=== PATIENT | male | born 1940 | race Two or more races ===

== ENCOUNTER 2017-12-14 12:47 | Emergency (ER) | payer SELFPAY ==
[2017-12-14 12:51] VITALS: BP 151/57; PULSE 80; RESP 16; TEMP 98.1; O2SAT 100
[2017-12-14] MEDS ORDERED: Tdap Vaccine 0.5 ml Vial (10-64 yrs) IM ONE ×2 (13:00→13:11)
--- NOTE | 2017-12-14 13:02 | ED PDOC ---
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 Patient states that he hit his face but did not lose consciousness, and he denies any dizziness before the fall. Patient complains of pain on the right side of his face where he sustained most of the impact of the fall. He has no other medical complaints. He does not remember date of last Tetanus. PMD: None Past Medical History Reviewed: Historical Data, Nursing Documentation, Vital Signs Vital Signs: Last Vital Signs Temp 98.1 F 12/14/17 12:49 Pulse 80 12/14/17 12:49 Resp 16 12/14/17 12:49 BP 151/57 H 12/14/17 12:49 Pulse Ox 100 12/14/17 14:17 - Medical History PMH: No Chronic Diseases - Family History Family History: States: Unknown Family Hx - Immunization History Hx Tetanus Toxoid Vaccination: No (Unknown) - Allergies Allergies/Adverse Reactions: Allergies Allergy/AdvReac Type Severity Reaction Status Date / Time No Known Allergies Allergy Verified 12/14/17 12:49 Review of Systems ROS Statement: Except As Marked, All Systems Reviewed And Found Negative Musculoskeletal: Positive for: Other (Facial Pain, Right side) Physical Exam - Reviewed Nursing Documentation Reviewed: Yes Vital Signs Reviewed: Yes - Physical Exam Appears: Positive for: Well, Non-toxic, No Acute Distress Head Exam: Positive for: NORMAL INSPECTION, NORMOCEPHALIC. Negative for: ATRAUMATIC (abrasions on right maxillary region and chin) Skin: Positive for: Normal Color, Warm, Dry Extremity: Positive for: Normal ROM. Negative for: Pedal Edema, Deformity Neurologic/Psych: Positive for: Alert, Oriented, Gait (steady). Negative for: Motor/Sensory Deficits - ECG O2 Sat by Pulse Oximetry: 100 (RA) Pulse Ox Interpretation: Normal - Other Rad CT head and facial bones X-Ray: Read By Radiologist X-Ray Interpretation: no acute finding Medical Decision Making Medical Decision Making: Time: 13:00 Initial Impression: 77 y/o male with head injury status post fall Initial Plan: --CT Head w/o Contrast --CT Maxillofacial w/o Contrast --XR Left Hand 3 Views --XR Right Hand 3 Views --Adacel --Tylenol Patient with CT findings, all questions answered. Advised Tylenol for pain. Patient was referred to clinic for follow up. Scribe Attestation: Documented by Kris Pereira, acting as a scribe for Mary Andrea PA-C. Provider Scribe Attestation: All medical record entries made by the Scribe were at my direction and personally dictated by me. I have reviewed the chart and agree that the record accurately reflects my personal performance of the history, physical exam, medical decision making, and the department course for this patient. I have also personally directed, reviewed, and agree with the discharge instructions and disposition. Disposition - Clinical Impression Clinical Impression: Facial abrasion, Head injury, Requires a booster tetanus, Facial contusion - Patient ED Disposition Is Patient to be Admitted: No Counseled Patient/Family Regarding: Studies Performed, Diagnosis, Need For Followup - Disposition Referrals: [facility] [Outside] Disposition: Routine/Home Disposition Time: 15:04 Condition: STABLE Additional Instructions: Tylenol for pain as needed. Follow up with clinic in 2-3 days. Instructions: Closed Head Injury (DC), Contusion (DC), Skin Abrasions (DC), Diphtheria and Tetanus Toxoids, and Acellular Pertussis Vaccine Forms: [employer] (New Zealander) Print Language: ROMANIAN
--- NOTE | 2017-12-14 14:07 | CT ---
PROCEDURE: CT HEAD WITHOUT CONTRAST. HISTORY: trauma COMPARISON: None available. TECHNIQUE: Axial computed tomography images were obtained through the head/brain without intravenous contrast. Radiation dose: Total exam DLP = mGy-cm. This CT exam was performed using one or more of the following dose reduction techniques: Automated exposure control, adjustment of the mA and/or kV according to patient size, and/or use of iterative reconstruction technique. FINDINGS: HEMORRHAGE: No intracranial hemorrhage. BRAIN: No mass effect or edema. No atrophy or chronic microvascular ischemic changes. VENTRICLES: Unremarkable. No hydrocephalus. CALVARIUM: Unremarkable. PARANASAL SINUSES: Unremarkable as visualized. No significant inflammatory changes. MASTOID AIR CELLS: Unremarkable as visualized. No inflammatory changes. OTHER FINDINGS: None. IMPRESSION: Normal CT of the Head.
--- NOTE | 2017-12-14 14:56 | CT ---
PROCEDURE: CT MAXILLOFACIAL BONES WITHOUT CONTRAST HISTORY: trauma COMPARISON: None TECHNIQUE: Contiguous axial CT images of the maxillofacial bones were obtained. Coronal and sagittal reformats were generated. Radiation dose: Total exam DLP = mGy-cm. This CT exam was performed using one or more of the following dose reduction techniques: Automated exposure control, adjustment of the mA and/or kV according to patient size, and/or use of iterative reconstruction technique. FINDINGS: NASAL BONES: Unremarkable. ORBITS: Unremarkable. PARANASAL SINUSES/ MASTOIDS: Clear. MAXILLA: Unremarkable. MANDIBLE/ TEMPOROMANDIBULAR JOINTS: Unremarkable. SKULL BASE: Unremarkable. TEMPORAL BONES: Middle ears and mastoid grossly unremarkable. OTHER FINDINGS: None. IMPRESSION: Unremarkable non contrast enhanced CT of the maxillofacial bones.
--- NOTE | 2017-12-14 16:43 | RAD ---
PROCEDURE: Left Hand Radiographs. HISTORY: trauma COMPARISON: None. FINDINGS: BONES: Normal. No fracture. JOINTS: Normal. No osteoarthritic changes. SOFT TISSUES: Normal. OTHER FINDINGS: None. IMPRESSION: Normal left hand radiographs.
--- NOTE | 2017-12-15 12:06 | RAD ---
HISTORY: trauma COMPARISON: No prior FINDINGS: BONES: Normal. No fracture. JOINTS: Normal. No osteoarthritis. SOFT TISSUE: Normal. OTHER FINDINGS: None . IMPRESSION: Normal Bone Xray.
== END 2017-12-14 15:41 | disposition home or self-care (01) ==
LOC: H.ER 12:47
DX: S00.81XA Abrasion of other part of head, initial encounter (principal); S00.83XA Contusion of other part of head, initial encounter; S69.91XA Unspecified injury of right wrist, hand and finger(s), initial encounter; W01.0XXA Fall on same level from slipping, tripping and stumbling without subsequent striking against object, initial encounter; Y92.480 Sidewalk as the place of occurrence of the external cause

== ENCOUNTER 2018-12-28 10:32 | Observation (INO) | payer MEDICAID, OTHER ==
--- NOTE | 2018-12-28 10:55 | ED PDOC ---
HPI: General Adult Time Seen by Provider: 12/28/18 10:42 Chief Complaint (Nursing): Chest Pain Chief Complaint (Provider): Body Pain History Per: Coloring Checker ([id number]) History/Exam Limitations: language barrier (poor historian) Onset/Duration Of Symptoms: Other (several months) Current Symptoms Are (Timing): Still Present Additional Complaint(s): Patient is a 78 y/o male with no significant PMHx who presents to the ED for evaluation of various physical complaints including body pain, dizziness, chest pain, and difficulty breathing for several months. Patient claims his symptoms worsen when sleeping at night. Patient reports this is the first time he is being seen by a physician for his symptoms. Patient also notes mild cough, headache, muscle ache, joint pain, and pain around his belly button. Patient denies vomiting, diarrhea, blood in stool, trouble urinating, unexplained weight loss, and prior heart or lung problems. 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 PCP: None Provided Past Medical History Reviewed: Historical Data, Nursing Documentation, Vital Signs Vital Signs: Last Vital Signs Temp 98.5 F 12/28/18 10:51 Pulse 74 12/28/18 10:51 Resp 20 12/28/18 10:51 BP 139/52 L 12/28/18 10:51 Pulse Ox 97 12/28/18 10:51 - Medical History PMH: No Chronic Diseases - Surgical History Surgical History: No Surg Hx - Family History Family History: States: No Known Family Hx - Social History Current smoker - smoking cessation education provided: No Ex-Smoker (has not smoked in the last 12 months): No Alcohol: None Drugs: Denies - Immunization History Hx Tetanus Toxoid Vaccination: No (Unknown) - Home Medications Home Medications: Ambulatory Orders Medication Instructions Recorded Aspirin [Aspirin Chewable] 81 mg PO DAILY chew 12/29/18 Aspirin [Muse Aspirin EC] 81 mg PO DAILY #30 tab 12/29/18 Lisinopril [Zestril] 2.5 mg PO DAILY #30 tab 12/29/18 Pantoprazole [Protonix EC Tab] 40 mg PO DAILY ect 12/29/18 - Allergies Allergies/Adverse Reactions: Allergies Allergy/AdvReac Type Severity Reaction Status Date / Time No Known Allergies Allergy Verified 12/14/17 12:49 Review of Systems ROS Statement: Except As Marked, All Systems Reviewed And Found Negative Constitutional: Negative for: Other (unexplained weight loss) Cardiovascular: Positive for: Chest Pain Respiratory: Positive for: Cough (mild), Other (dyspnea) Gastrointestinal: Positive for: Abdominal Pain (around belly button). Negative for: Vomiting, Diarrhea, Melena Genitourinary Male: Negative for: Dysuria, Incontinence, Hematuria Musculoskeletal: Positive for: Other (muscle ache and joint pain) Neurological: Positive for: Headache, Dizziness Physical Exam - Reviewed Nursing Documentation Reviewed: Yes - Physical Exam Appears: Positive for: No Acute Distress (elderly; poor historian) Head Exam: Positive for: ATRAUMATIC, NORMAL INSPECTION, NORMOCEPHALIC Skin: Positive for: Normal Color, Warm, DRY Eye Exam: Positive for: EOMI, Normal appearance, PERRL Neck: Positive for: Normal, Painless ROM, Supple Cardiovascular/Chest: Positive for: Regular Rate, Rhythm. Negative for: Murmur Respiratory: Positive for: Normal Breath Sounds. Negative for: Respiratory Distress Gastrointestinal/Abdominal: Positive for: Normal Exam, Soft, Other (umbilicus unremarkable). Negative for: Tenderness (focal), Mass (palpable) Back: Positive for: Normal Inspection. Negative for: L CVA Tenderness, R CVA Tenderness, Vertebral Tenderness Extremity: Positive for: Normal ROM. Negative for: Pedal Edema, Deformity Neurological/Psych: Positive for: Alert, Symmetric/Intact Strength (5/5), Oriented (to self and hospital), Gait (steady) - Laboratory Results Result Diagrams: 12/29/18 04:20 12/29/18 03:25 - ECG ECG Rhythm: Positive for: Sinus Rhythm, Right Bundle Branch Block (incomplete), Nonspecific Changes Rate: 69 O2 Sat by Pulse Oximetry: 97 (RA) Pulse Ox Interpretation: Normal Medical Decision Making Medical Decision Making: Time: 1055 Plan: Given total body pain will consider malignancy vs rhabdomyolysis vs thyroid disease vs arthritis vs CAD vs other. 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 PLEURA: No significant pleural effusion identified. No pneumothorax apparent. CARDIOVASCULAR: No aortic atherosclerotic calcification present. Heart is mildly enlarged.. No pulmonary vascular congestion. OSSEOUS STRUCTURES: Minor multilevel degenerative spondylosis of the thoracic spine VISUALIZED UPPER ABDOMEN: Normal. OTHER FINDINGS: None. IMPRESSION: The interstitial markings are increased and coarsened with a somewhat micronodular appearance; rule out sequela of reactive/inflammatory airway di sease or viral illness versus interstitial pneumonia. Scribe Attestation: Documented by Amando Archuleta, acting as a scribe Gregg Encarnacion III, DO. Provider Scribe Attestation: All medical record entries made by the Scribe were at my direction and personally dictated by me. I have reviewed the chart and agree that the record accurately reflects my personal performance of the history, physical exam, medical decision making, and the department course for this patient. I have also personally directed, reviewed, and agree with the discharge instructions and disposition. Disposition - Clinical Impression Clinical Impression: Acute chest pain, Dyspnea - Patient ED Disposition Is Patient to be Admitted: Yes - Disposition Disposition Time: 13:01 Condition: GOOD - Pt Status Changed To: Hospital Disposition Of: Observation
[2018-12-28 11:23] LABS: BASO # 0.1 K/uL (0.0-0.2); BASO % 1.1 % (0.0-2.0); EOS # 0.1 K/uL (0.0-0.7); EOS % 2.4 % (0.0-4.0); HEMOGLOBIN 12.8 g/dL (12.0-18.0); LYMPH # 1.3 K/uL (1.0-4.3); LYMPH % 26.7 % (20.0-40.0); MEAN CELL VOLUME 89.3 fl (80.0-94.0); MEAN CORPUSCULAR HGB CONC 33.6 g/dL (33.0-37.0); MEAN PLATELET VOLUME 8.2 fl (7.2-11.7); MONO # 0.4 K/uL (0.0-0.8); MONO % 7.7 % (0.0-10.0); NEUT % 62.1 % (50.0-75.0); NRBC % 0.1 % (0.0-0.0); RBC 4.28 Mil/uL (4.40-5.90); RED CELL DISTRIBUTION WIDTH 13.6 % (11.5-14.5); WHITE BLOOD COUNT 4.9 K/uL (4.8-10.8)
[2018-12-28 11:54] LABS: ALB/GLOB RATIO 1.3 (1.0-2.1); ALBUMIN 3.6 g/dL (3.5-5.0); ALT/SGPT 32 U/L (21-72); AST/SGOT 39 U/L (17-59); BLOOD UREA NITROGEN 23 mg/dl (9-20); CALCIUM 8.6 mg/dL (8.4-10.2); GFR NON-AFRICAN AMERICAN > 60; LIPASE 64 U/L (23-300)
[2018-12-28 12:05] LABS: B-TYPE NATRIURETIC PEPTIDE 3130 pg/ml (0-900)
[2018-12-28 12:13] LABS: SQUAMOUS EPITHIAL < 1 /hpf (0-5); URINE BILIRUBIN NEGATIVE (NEGATIVE); URINE BLOOD MODERATE (NEGATIVE); URINE CLARITY CLEAR (Clear); URINE COLOR YELLOW (YELLOW); URINE GLUCOSE (UA) NEG (NEGATIVE); URINE LEUKOCYTE ESTERASE NEG Leu/uL (Negative); URINE PROTEIN NEGATIVE (NEGATIVE); URINE UROBILINOGEN 0.2-1.0 mg/dL (0.2-1.0)
--- NOTE | 2018-12-28 14:05 | CP.PCM.HP ---
<Slime Parikh - Last Filed: 12/28/18 14:35> History of Present Illness - History of Present Illness History of Present Illness: 78 y/o male with no significant medical history presented to ED with complaint of body pain, dizziness, chest pain, and difficulty breathing for several month duration. He states his chest pain is intermittent, 5/10, located at center of chest and radiates to the abdomen and is associated with dyspnea. He states that lifting heavy boxes at work exacerbate symptoms and states that sometimes he awakens from his sleep because he cant catch his breath. He uses one pillow at night and states he can walk more than 10 blocks and does not get short of breath or have chest pain. Also reports cough and muscle aches, states there is a sick contact at home. Has not seen a doctor in more than 10 years. Denies fevers, chills, vomiting, diarrhea, blood in stool, dysuria, frequency, and urgency. PMD: None Medical history: none Medications: None Surgical history: none Social history: Denies smoking history, illicit drug use or alcohol use. ED: V/S: BP: 98.5 ; HR: 74 ; 139/52 ; O2 Saturation: 97% on room air EKG: sinus rhythm; right bundle branch block (incomplete) CBC: 4.9 > 12.8 / 38.2 < 159 CXR: Interstitial markings are increased and coarsened with somewhat nodular appearance; rule out sequela of reactive/ inflammatory airway disease or vial illness verses interstitial pneumonia Dispensary Clerk Glucose, Blood, POC: 143 UA: Negative Pro-BNP: 3130 TSH: 0.99 PSA: 11.3 Present on Admission - Present on Admission Any Indicators Present on Admission: No Past Patient History - Past Social History Alcohol: None Drugs: Denies - PSYCHIATRIC Hx Substance Use: No - SURGICAL HISTORY Hx Surgeries: No - ANESTHESIA Hx Anesthesia: No Meds Allergies/Adverse Reactions: Allergies Allergy/AdvReac Type Severity Reaction Status Date / Time No Known Allergies Allergy Verified 12/14/17 12:49 Physical Exam - Constitutional Appears: Non-toxic, No Acute Distress - ENT Exam ENT Exam: Mucous Membranes Moist, Normal Exam - Neck Exam Neck exam: Positive for: Normal Inspection - Respiratory Exam Respiratory Exam: Clear to Auscultation Bilateral, NORMAL BREATHING PATTERN. absent: Accessory Muscle Use, Chest Wall Tenderness, Decreased Breath Sounds, Prolonged Expiratory Phase, Rales, Rhonchi, Wheezes, Respiratory Distress, Stridor - Cardiovascular Exam Cardiovascular Exam: REGULAR RHYTHM, RRR, +S1, +S2. absent: JVD - GI/Abdominal Exam GI & Abdominal Exam: Normal Bowel Sounds, Soft. absent: Diminished Bowel Sounds, Distended, Firm, Hyperactive Bowel Sounds, Rebound, Rigid, Tenderness - Extremities Exam Extremities exam: Positive for: normal capillary refill, normal inspection, pedal pulses present (+2 dorsalis pedis and +2 tibialis posterior present bilateral). Negative for: calf tenderness, joint swelling, pedal edema, tenderness - Back Exam Back exam: NORMAL INSPECTION. absent: CVA tenderness (L), CVA tenderness (R), tenderness - Neurological Exam Neurological exam: Alert, Oriented x3 - Psychiatric Exam Psychiatric exam: Normal Affect, Normal Mood - Skin Skin Exam: Dry, Intact, Normal Color, Warm Results - Vital Signs Recent Vital Signs: Last Vital Signs Temp 98.5 F 12/28/18 10:51 Pulse 69 12/28/18 13:28 Resp 20 12/28/18 10:51 BP 139/52 L 12/28/18 10:51 Pulse Ox 97 12/28/18 13:28 - Labs Result Diagrams: 12/28/18 11:18 12/28/18 11:18 Labs: Laboratory Results - last 24 hr 12/28/18 12/28/18 12/28/18 11:09 11:18 11:18 WBC 4.9 RBC 4.28 L Hgb 12.8 Hct 38.2 MCV 89.3 MCH 30.0 MCHC 33.6 RDW 13.6 Plt Count 159 MPV 8.2 Neut % (Auto) 62.1 Lymph % (Auto) 26.7 [place] % (Auto) 7.7 Eos % (Auto) 2.4 Baso % (Auto) 1.1 Neut # (Auto) 3.0 Lymph # (Auto) 1.3 [place] # (Auto) 0.4 Eos # (Auto) 0.1 Baso # (Auto) 0.1 Sodium 137 Potassium 4.0 Chloride 106 Carbon Dioxide 24 Anion Gap 11 BUN 23 H Creatinine 0.7 L Est GFR ( Amer) > 60 Est GFR (Non-Af Amer) > 60 POC Glucose (mg/dL) 140 H Random Glucose 143 H Calcium 8.6 Phosphorus 4.0 Magnesium 2.0 Total Bilirubin 0.6 AST 39 ALT 32 Alkaline Phosphatase 61 Total Creatine Kinase 145 Troponin I 0.0160 NT-Pro-B Natriuret Pep 3130 H Total Protein 6.3 Albumin 3.6 Globulin 2.7 Albumin/Globulin Ratio 1.3 Lipase 64 Prostate Specific Ag 11.3 H TSH 3rd Generation 0.99 Assessment & Plan - Assessment and Plan (Free Text) Assessment: 78 y/o male with no significant medical history presented to ED with general complaints, mainly of chest pain, admitted to rule out ACS and CHF as his Pro [id number]. Plan: 1. Chest Pain r/o ACS - r/o CHF- Pro-BNP : - Admit to Telemetry - S/P ASA and Nitroglycerin 0.4mg - Heart Healthy diet - F/U echo - F/U Chest x-ray final reading - F/U EKG final reading - F/U AM labs 2. DVT prophylaxis - SCD and Lovenox 3. Full code <Myron Davidson D - Last Filed: 12/28/18 15:25> Results - Vital Signs Recent Vital Signs: Last Vital Signs Temp 98.5 F 12/28/18 10:51 Pulse 69 12/28/18 14:58 Resp 16 12/28/18 14:53 BP 115/52 L 12/28/18 14:53 Pulse Ox 97 12/28/18 14:58 - Labs Result Diagrams: 12/28/18 11:18 12/28/18 11:18 Labs: Laboratory Results - last 24 hr 12/28/18 12/28/18 12/28/18 11:09 11:18 11:18 WBC 4.9 RBC 4.28 L Hgb 12.8 Hct 38.2 MCV 89.3 MCH 30.0 MCHC 33.6 RDW 13.6 Plt Count 159 MPV 8.2 Neut % (Auto) 62.1 Lymph % (Auto) 26.7 [place] % (Auto) 7.7 Eos % (Auto) 2.4 Baso % (Auto) 1.1 Neut # (Auto) 3.0 Lymph # (Auto) 1.3 [place] # (Auto) 0.4 Eos # (Auto) 0.1 Baso # (Auto) 0.1 Sodium 137 Potassium 4.0 Chloride 106 Carbon Dioxide 24 Anion Gap 11 BUN 23 H Creatinine 0.7 L Est GFR ( Amer) > 60 Est GFR (Non-Af Amer) > 60 POC Glucose (mg/dL) 140 H Random Glucose 143 H Calcium 8.6 Phosphorus 4.0 Magnesium 2.0 Total Bilirubin 0.6 AST 39 ALT 32 Alkaline Phosphatase 61 Total Creatine Kinase 145 Troponin I 0.0160 NT-Pro-B Natriuret Pep 3130 H Total Protein 6.3 Albumin 3.6 Globulin 2.7 Albumin/Globulin Ratio 1.3 Lipase 64 Prostate Specific Ag 11.3 H TSH 3rd Generation 0.99 Urine Color Urine Clarity Urine pH Ur Specific [place] Urine Protein Urine Glucose (UA) Urine Ketones Urine Blood Urine Nitrate Urine Bilirubin Urine Urobilinogen Ur Leukocyte Esterase Urine RBC (Auto) Urine Microscopic WBC Ur Squamous Epith Cells Urine Bacteria 12/28/18 13:38 WBC RBC Hgb Hct MCV MCH MCHC RDW Plt Count MPV Neut % (Auto) Lymph % (Auto) [place] % (Auto) Eos % (Auto) Baso % (Auto) Neut # (Auto) Lymph # (Auto) [place] # (Auto) Eos # (Auto) Baso # (Auto) Sodium Potassium Chloride Carbon Dioxide Anion Gap BUN Creatinine Est GFR ( Amer) Est GFR (Non-Af Amer) POC Glucose (mg/dL) Random Glucose Calcium Phosphorus Magnesium Total Bilirubin AST ALT Alkaline Phosphatase Total Creatine Kinase Troponin I NT-Pro-B Natriuret Pep Total Protein Albumin Globulin Albumin/Globulin Ratio Lipase Prostate Specific Ag TSH 3rd Generation Urine Color Yellow Urine Clarity Clear Urine pH 6.0 Ur Specific [place] 1.012 Urine Protein Negative Urine Glucose (UA) Neg Urine Ketones Negative Urine Blood Moderate Urine Nitrate Negative Urine Bilirubin Negative Urine Urobilinogen 0.2-1.0 Ur Leukocyte Esterase Neg Urine RBC (Auto) 20 H Urine Microscopic WBC < 1 Ur Squamous Epith Cells < 1 Urine Bacteria Few H Attending/Attestation - Attestation I have personally seen and examined this patient.: Yes I have fully participated in the care of the patient.: Yes I have reviewed all pertinent clinical information: Yes Notes (Text): 12/28/18 15:24 Patient seen and examined with resident. Case discussed and agreed with assessment and plan of management
[2018-12-28 14:17] LABS: URINE BACTERIA FEW (<OCC)
--- NOTE | 2018-12-28 14:22 | RAD ---
Date of service: 12/28/2018 HISTORY: Chest pain, r/o infiltrate COMPARISON: No prior. TECHNIQUE: Chest PA and lateral views FINDINGS: LUNGS: The interstitial markings are increased and coarsened with a somewhat micro nodular appearance; rule out sequela of reactive/inflammatory airway disease or viral illness versus interstitial pneumonia. PLEURA: No significant pleural effusion identified. No pneumothorax apparent. CARDIOVASCULAR: No aortic atherosclerotic calcification present. Heart is mildly enlarged.. No pulmonary vascular congestion. OSSEOUS STRUCTURES: Minor multilevel degenerative spondylosis of the thoracic spine VISUALIZED UPPER ABDOMEN: Normal. OTHER FINDINGS: None. IMPRESSION: The interstitial markings are increased and coarsened with a somewhat micronodular appearance; rule out sequela of reactive/inflammatory airway disease or viral illness versus interstitial pneumonia..
[2018-12-28] MEDS ORDERED: Pantoprazole 40 mg EC Tab PO ONE ×2 (14:49→14:54)
[2018-12-28] MEDS: Pantoprazole 40 mg EC Tab PO SCH (14:51)
[2018-12-29 03:43] LABS: BLOOD UREA NITROGEN 23 mg/dl (9-20); CALCIUM 8.9 mg/dL (8.4-10.2); GFR NON-AFRICAN AMERICAN > 60; HDL CHOLESTEROL 45 MG/DL (30-70)
[2018-12-29 03:54] LABS: LDL CHOLESTEROL 109 mg/dL (0-129)
[2018-12-29 05:29] LABS: BASO % 0.7 % (0.0-2.0); EOS # 0.3 K/uL (0.0-0.7); EOS % 4.7 % (0.0-4.0); HEMOGLOBIN 12.8 g/dL (12.0-18.0); LYMPH # 1.7 K/uL (1.0-4.3); LYMPH % 31.5 % (20.0-40.0); MEAN CELL VOLUME 89.7 fl (80.0-94.0); MEAN CORPUSCULAR HEMOGLOBIN 29.7 pg (27.0-31.0); MEAN CORPUSCULAR HGB CONC 33.1 g/dL (33.0-37.0); MEAN PLATELET VOLUME 8.4 fl (7.2-11.7); MONO # 0.4 K/uL (0.0-0.8); MONO % 8.1 % (0.0-10.0); NEUT # 2.9 K/uL (1.8-7.0); NRBC % 0.1 % (0.0-0.0); RBC 4.31 Mil/uL (4.40-5.90); RED CELL DISTRIBUTION WIDTH 13.6 % (11.5-14.5); WHITE BLOOD COUNT 5.3 K/uL (4.8-10.8)
[2018-12-29] MEDS ORDERED: Albuterol-Ipratrop 3 mg / 0.5 (3 ml) UD INH STA (07:57)
[2018-12-29 08:01] VITALS: RESP 18
[2018-12-29] MEDS: Pantoprazole 40 mg EC Tab PO SCH (08:41)
[2018-12-29] MEDS ORDERED: Enoxaparin 40 mg Syringe SC SCH (09:00)
--- NOTE | 2018-12-29 09:22 | CP.PCM.PN ---
<Slime Parikh - Last Filed: 12/29/18 10:55> Subjective - Date & Time of Evaluation Date of Evaluation: 12/29/18 Time of Evaluation: 09:21 - Subjective Subjective: Patient seen and examined at bedside. Denies any complaints. Denies chest pain, shortness of breath, nausea, vomiting, abdominal pain, and diarrhea. Reports no cturia symptoms but denies dysuria, frequency, urgency and difficulty initiating urination. Objective - Vital Signs/Intake and Output Vital Signs (last 24 hours): Temp Pulse Resp BP Pulse Ox 98.1 F 69 18 113/56 L 96 12/29/18 08:01 12/29/18 08:41 12/29/18 08:01 12/29/18 08:46 12/29/18 08:01 - Medications Medications: Current Medications Aspirin (Aspirin Chewable) 81 mg PO DAILY [facility] Last Admin: 12/29/18 08:41 Dose: 81 mg Enoxaparin Sodium (Lovenox) 40 mg SC DAILY [facility]; Protocol Last Admin: 12/29/18 08:40 Dose: 40 mg Lisinopril (Zestril) 2.5 mg PO DAILY [facility] Last Admin: 12/29/18 08:41 Dose: 2.5 mg Nitroglycerin (Nitrostat Sl Tab) 0.4 mg SL Q5M PRN PRN Reason: chest pain Pantoprazole Sodium (Protonix Ec Tab) 40 mg PO DAILY [facility] Last Admin: 12/29/18 08:41 Dose: 40 mg - Labs Labs: 12/29/18 04:20 12/29/18 03:25 - Constitutional Appears: Non-toxic, No Acute Distress, Older Than Stated Age - Eye Exam Additional comments: Swollen eyelids. - Respiratory Exam Respiratory Exam: Clear to Ausculation Bilateral, NORMAL BREATHING PATTERN. absent: Accessory Muscle Use, Chest Wall Tenderness, Decreased Breath Sounds, Prolonged Expiratory Phase, Rales, Rhonchi, Wheezes, Respiratory Distress, Stridor - Cardiovascular Exam Cardiovascular Exam: +S1, +S2, Murmur (significant systolic murmur greater noted over aortic listening post. Thrill present on aortic spot) - GI/Abdominal Exam GI & Abdominal Exam: Soft, Normal Bowel Sounds. absent: Distended, Firm, Guarding, Rigid, Tenderness, Rebound - Extremities Exam Extremities Exam: Normal Capillary Refill, Normal Inspection. absent: Calf Tenderness, Joint Swelling, Pedal Edema, Tenderness - Neurological Exam Neurological Exam: Alert, Awake, Oriented x3 - Psychiatric Exam Psychiatric exam: Normal Affect, Normal Mood - Skin Skin Exam: Dry, Intact, Normal Color, Warm Assessment and Plan - Assessment and Plan (Free Text) Assessment: 78 y/o male with no significant medical history presented to ED with general complaints, mainly of chest pain, admitted to rule out ACS and CHF as his Pro BNP 3130; Significant systolic murmur. Plan: 1. Chest Pain r/o ACS - r/o CHF- Pro-BNP :3130 - S/P ASA and Nitroglycerin 0.4mg - Cardiology consult appreciated with Dr. Ji - Troponins x3 negative - Significant Systolic murmur on exam - F/U ECHO - Chest x-ray: Interstitial markings are increased and coarsened with micronodular appearance; rule out sequela or reactive/ inflammatory airway disease or viral illnes vs. interstitial pneumonia. - EKG final read: NSR with PVC's; Left axis deviation; LVH with repolarization abnormality - F/U repeat EKG - F/U AM labs 2. Elevated PSA - To be follow up as outpatient 3 . DVT prophylaxis - SCD and Lovenox 4. Full code <Pratibha Miranda - Last Filed: 12/29/18 16:36> Objective - Vital Signs/Intake and Output Vital Signs (last 24 hours): Temp Pulse Resp BP Pulse Ox 97.7 F 65 18 131/56 L 99 12/29/18 15:34 12/29/18 15:34 12/29/18 15:34 12/29/18 15:34 12/29/18 15:34 - Medications Medications: Current Medications Aspirin (Aspirin Chewable) 81 mg PO DAILY [facility] Last Admin: 12/29/18 08:41 Dose: 81 mg Enoxaparin Sodium (Lovenox) 40 mg SC DAILY [facility]; Protocol Last Admin: 12/29/18 08:40 Dose: 40 mg Lisinopril (Zestril) 2.5 mg PO DAILY [facility] Last Admin: 12/29/18 08:41 Dose: 2.5 mg Nitroglycerin (Nitrostat Sl Tab) 0.4 mg SL Q5M PRN PRN Reason: chest pain Pantoprazole Sodium (Protonix Ec Tab) 40 mg PO DAILY [facility] Last Admin: 12/29/18 08:41 Dose: 40 mg - Labs Labs: 12/29/18 04:20 12/29/18 03:25 Attending/Attestation - Attestation I have personally seen and examined this patient.: Yes I have fully participated in the care of the patient.: Yes I have reviewed all pertinent clinical information, including history, physical exam and plan: Yes Notes (Text): Chest Pain, ACS ruled out, Pain prob due to Severe aortic stenosis Severe Aortic Stenosis and Aortic Regurgitation Acute CHF, Systolic and Diastolic Dysfunction Elevated PSA - Pt came in bec of CP and SOB, w/c has now resolved -On exam - noted loud pansystolic murmur radiating to the back - gentle diuresis with Lasix x 1 dose - start low dose FIDE inhibitor - Cardiology consult - Pt may need Valve replacement - further Prostate work up as outpt, pt is asymptomatic ( no urinary sxs )
--- NOTE | 2018-12-29 10:27 | CARD ---
APPROVED REPORT Date of service: 12/28/2018 EKG Measurement Heart [id number] [id number] <Conclusion> Normal sinus rhythm with premature atrial complexes Left axis deviation Left ventricular hypertrophy with repolarization abnormality Abnormal ECG
--- NOTE | 2018-12-29 15:23 | CARD ---
APPROVED REPORT Date of service: 12/29/2018 EKG Measurement Heart [id number] [id number] [id number] <Conclusion> Normal sinus rhythm Left axis deviation Voltage criteria for left ventricular hypertrophy Nonspecific T wave abnormality Abnormal ECG
--- NOTE | 2018-12-29 15:33 | CARD ---
APPROVED REPORT Date of service: 12/29/2018 EXAM: Two-dimensional and M-mode echocardiogram with Doppler and color Doppler. Other Information Quality : GoodRhythm : NSR INDICATION Congestive Heart Failure 2D DIMENSIONS IVSd1.31 (0.7-1.1cm)LVDd6.00 (3.9-5.9cm) LVOT Diameter1.81 (1.8-2.4cm)PWd0.95 (0.7-1.1cm) IVSs1.46 (0.8-1.2cm)LVDs4.43 (2.5-4.0cm) FS (%) 26.2 %PWs1.14 (0.8-1.2cm) M-Mode DIMENSIONS Left Atrium (MM)4.24 (2.5-4.0cm)IVSd0.88 (0.7-1.1cm) Aortic Root2.71 (2.2-3.7cm)LVDd7.62 (4.0-5.6cm) Aortic Cusp Exc.0.74 (1.5-2.0cm)PWd1.15 (0.7-1.1cm) IVSs1.47 cmFS (%) 36 % LVDs4.91 (2.0-3.8cm)PWs1.59 cm Aortic Valve AoV Peak Qqgcjzla429.5cm/sAoV VTI89.9cmAO Peak GR.67mmHg LVOT Peak Fpfjqmib453.5cm/sLVOT VTI32.35cmAO Mean GR.39mmHg TARUN (VMAX)0.71zk6VKR (VTI)0.24xs0GW P 1/2 Pnce368rd Mitral Valve MV E Bamtassb54.0cm/sMV DECEL ODNS068udCA A Nimphtau77.4cm/s MV ZBD18xkK/A ratio1.4MVA (PHT)5.02cm2 TDI Lateral E' Peak V10.43cm/sMedial E' Peak V6.52cm/sE/Lateral E'9.5 E/Medial E'15.2 LEFT VENTRICLE The Left Ventricle is mildly dilated. There is normal left ventricular wall thickness. The LV systolic function is mildly impaired. The estimated ejection fraction is 45-50% There is global hypokinesis of the left ventricle. Transmitral Doppler flow pattern is Grade II-pseudonormal filling dynamics. No left ventricle thrombus noted on this study. There is no ventricular septal defect visualized. There is no left ventricular aneurysm. There is no mass noted in the left ventricle. RIGHT VENTRICLE The right ventricle is normal size. There is normal right ventricular wall thickness. The right ventricular systolic function is normal. ATRIA The left atrium is mildly dilated. The right atrium size is normal. The interatrial septum is intact with no evidence for an atrial septal defect. AORTIC VALVE The aortic valve is calcified. Moderate to severe aortic regurgitation is present. There is severe aortic valvular stenosis. Peak aortic velocity is - 4 m/s and calculated AV area is < 1 cm2. There is no aortic valvular vegetation. MITRAL VALVE The mitral valve is normal in structure. There is no evidence of mitral valve prolapse. There is no mitral valve stenosis. There is mild mitral valve regurgitation noted. TRICUSPID VALVE The tricuspid valve is normal in structure. There is trace tricuspid valve regurgitation noted. There is no tricuspid valve prolapse or vegetation. There is no tricuspid valve stenosis. PULMONIC VALVE The pulmonary valve is normal in structure. There is no pulmonic valvular regurgitation. There is no pulmonic valvular stenosis. GREAT VESSELS The aortic root is normal in size. The ascending aorta is normal in size. The pulmonary artery is normal. The IVC is normal in size and collapses >50% with inspiration. PERICARDIAL EFFUSION There is no pericardial effusion. There is no pleural effusion. <Conclusion> The LV systolic function is mildly impaired. The estimated ejection fraction is 45-50% Transmitral Doppler flow pattern is Grade II-pseudonormal filling dynamics. The left atrium is mildly dilated. Moderate to severe aortic regurgitation is present. There is severe aortic valvular stenosis. Peak aortic velocity is - 4 m/s and calculated AV area is < 1 cm2. There is mild mitral valve regurgitation noted. There is trace tricuspid valve regurgitation noted.
[2018-12-29 15:34] VITALS: BP 131/56; TEMP 97.7
--- NOTE | 2018-12-29 17:06 | CP.PCM.DIS ---
<Slime Parikh - Last Filed: 12/29/18 17:36> Provider - Provider Date of Admission: 12/28/18 13:37 Attending physician: Myron Davidson MD Consults: 12/28/18 17:46 Pastoral Care Referral Routine Comment: Physician Instructions: Reason For Exam: spiritual support 12/28/18 17:47 Social Work Referral Routine Comment: none Physician Instructions: safe discharge. Reason For Exam: lives alone. 12/29/18 09:18 Cardiology Consult Routine Comment: Consulting Provider: Marylou Ji Consulting Physician: Marylou Ji Reason for Consult: CP. Aortic stenosis? Time Spent in preparation of Discharge (in minutes): 30 Diagnosis - Discharge Diagnosis (1) Chest pain Status: Acute Comment: - r/o CHF- Pro-BNP :3130. - S/P ASA and Nitroglycerin 0.4mg. - Cardiology consult appreciated with Dr. Ji. - Troponins x3 negative. - Significant Systolic murmur on exam. - Chest x-ray: Interstitial markings are increased and coarsened with micronodular appearance; rule out sequela or reactive/ inflammatory airway disease or viral illnes vs. interstitial pneumonia. - EKG final read: NSR with PVC's; Left axis deviation; LVH with repolarization abnormality. ECHO:EF of 45-50%, Severe Aortic regurgitation, and severe aortic valvular stenosis (2) Aortic stenosis, severe Status: Acute Comment: ECHO demonstrated EF of 45-50%, Severe Aortic regurgitation, and severe aortic valvular stenosis. Patient will have close follow up in [facility] (appointment scheduled for 01/01/19 @ 9:[address] Holden). Patient needs to have valve replaced (3) Aortic valve insufficiency, acquired Status: Acute Comment: ECHO demonstrated EF of 45-50%, Severe Aortic regurgitation, and severe aortic valvular stenosis. Patient will have close follow up in [facility] (appointment scheduled for 01/01/19 @ 9:[address] Holden). Patient needs to have valve replaced (4) Elevated PSA measurement Status: Acute Comment: PSA: 11. to be follow up as outpt Hospital Course - Lab Results Lab Results: Most Recent Lab Values WBC 5.3 K/uL (4.8-10.8) 12/29/18 04:20 RBC 4.31 Mil/uL (4.40-5.90) L 12/29/18 04:20 Hgb 12.8 g/dL (12.0-18.0) 12/29/18 04:20 Hct 38.6 % (35.0-51.0) 12/29/18 04:20 MCV 89.7 fl (80.0-94.0) 12/29/18 04:20 MCH 29.7 pg (27.0-31.0) 12/29/18 04:20 MCHC 33.1 g/dL (33.0-37.0) 12/29/18 04:20 RDW 13.6 % (11.5-14.5) 12/29/18 04:20 Plt Count 158 K/uL (130-400) 12/29/18 04:20 MPV 8.4 fl (7.2-11.7) 12/29/18 04:20 Neut % (Auto) 55.0 % (50.0-75.0) 12/29/18 04:20 Lymph % (Auto) 31.5 % (20.0-40.0) 12/29/18 04:20 Gaston % (Auto) 8.1 % (0.0-10.0) 12/29/18 04:20 Eos % (Auto) 4.7 % (0.0-4.0) H 12/29/18 04:20 Baso % (Auto) 0.7 % (0.0-2.0) 12/29/18 04:20 Neut # (Auto) 2.9 K/uL (1.8-7.0) 12/29/18 04:20 Lymph # (Auto) 1.7 K/uL (1.0-4.3) 12/29/18 04:20 Gaston # (Auto) 0.4 K/uL (0.0-0.8) 12/29/18 04:20 Eos # (Auto) 0.3 K/uL (0.0-0.7) 12/29/18 04:20 Baso # (Auto) 0.0 K/uL (0.0-0.2) 12/29/18 04:20 Sodium 136 mmol/l (132-148) 12/29/18 03:25 Potassium 3.9 MMOL/L (3.6-5.0) 12/29/18 03:25 Chloride 107 mmol/L (98-107) 12/29/18 03:25 Carbon Dioxide 23 mmol/L (22-30) 12/29/18 03:25 Anion Gap 10 (10-20) 12/29/18 03:25 BUN 23 mg/dl (9-20) H 12/29/18 03:25 Creatinine 0.7 mg/dl (0.8-1.5) L 12/29/18 03:25 Est GFR ( Amer) > 60 12/29/18 03:25 Est GFR (Non-Af Amer) > 60 12/29/18 03:25 POC Glucose (mg/dL) 140 mg/dL (65-110) H 12/28/18 11:09 Random Glucose 86 mg/dL (75-110) 12/29/18 03:25 Calcium 8.9 mg/dL (8.4-10.2) 12/29/18 03:25 Phosphorus 4.0 mg/dl (2.5-4.5) 12/28/18 11:18 Magnesium 2.0 MG/DL (1.6-2.3) 12/28/18 11:18 Total Bilirubin 0.6 mg/dl (0.2-1.3) 12/28/18 11:18 AST 39 U/L (17-59) 12/28/18 11:18 ALT 32 U/L (21-72) 12/28/18 11:18 Alkaline Phosphatase 61 U/L (38-126) 12/28/18 11:18 Total Creatine Kinase 145 U/L (55-170) 12/28/18 11:18 Troponin I 0.0140 ng/mL (0.00-0.120) 12/29/18 03:25 NT-Pro-B Natriuret Pep 3130 pg/ml (0-900) H 12/28/18 11:18 Total Protein 6.3 G/DL (6.3-8.2) 12/28/18 11:18 Albumin 3.6 g/dL (3.5-5.0) 12/28/18 11:18 Globulin 2.7 gm/dL (2.2-3.9) 12/28/18 11:18 Albumin/Globulin Ratio 1.3 (1.0-2.1) 12/28/18 11:18 Triglycerides 62 mg/DL (0-149) 12/29/18 03:25 Cholesterol 188 mg/dL (0-199) 12/29/18 03:25 LDL Cholesterol Direct 109 mg/dL (0-129) 12/29/18 03:25 HDL Cholesterol 45 MG/DL (30-70) 12/29/18 03:25 Lipase 64 U/L (23-300) 12/28/18 11:18 Prostate Specific Ag 11.3 ng/ML (0.00-4.0) H 12/28/18 11:18 TSH 3rd Generation 0.99 mIU/ML (0.46-4.68) 12/28/18 11:18 Urine Color Yellow (YELLOW) 12/28/18 13:38 Urine Clarity Clear (Clear) 12/28/18 13:38 Urine pH 6.0 (5.0-8.0) 12/28/18 13:38 Ur Specific Silver Plume 1.012 (1.003-1.030) 12/28/18 13:38 Urine Protein Negative mg/dL (NEGATIVE) 12/28/18 13:38 Urine Glucose (UA) Neg mg/dL (NEGATIVE) 12/28/18 13:38 Urine Ketones Negative mg/dL (NEGATIVE) 12/28/18 13:38 Urine Blood Moderate (NEGATIVE) 12/28/18 13:38 Urine Nitrate Negative (NEGATIVE) 12/28/18 13:38 Urine Bilirubin Negative (NEGATIVE) 12/28/18 13:38 Urine Urobilinogen 0.2-1.0 mg/dL (0.2-1.0) 12/28/18 13:38 Ur Leukocyte Esterase Neg Cedric/uL (Negative) 12/28/18 13:38 Urine RBC (Auto) 20 /hpf (0-3) H 12/28/18 13:38 Urine Microscopic WBC < 1 /hpf (0-5) 12/28/18 13:38 Ur Squamous Epith Cells < 1 /hpf (0-5) 12/28/18 13:38 Urine Bacteria Few (<OCC) H 12/28/18 13:38 - Hospital Course Hospital Course: 78 y/o male with no significant medical history presented to ED with general complaints, mainly of chest pain, admitted to rule out ACS and CHF as his Pro [id number]. Patient was found to have a significant systolic murmur on physical exam with a thrill on the aortic auscultation position. Cardiology was consulted at that time. Troponins negative x3. ECHO demonstrated EF of 45-50%, Severe Aortic regurgitation, and severe aortic valvular stenosis. EKG: NSR with PVC's; Left axis deviation; LVH with repolarization abnormality. Patient has close follow up scheduled with Dr. Holden in [facility], 01/01/19 @ 9am for referral to Cardiac surgery at [facility]. Discharge with prescriptions for lisinopril 2.5mg and Aspirin 81mg. Discharge Exam - Head Exam Head Exam: ATRAUMATIC, NORMAL INSPECTION, NORMOCEPHALIC - ENT Exam ENT Exam: Mucous Membranes Moist - Respiratory Exam Respiratory Exam: Clear to PA & Lateral, NORMAL BREATHING PATTERN, UNREMARKABLE - Cardiovascular Exam Cardiovascular Exam: REGULAR RHYTHM, +S1, +S2, Systolic Murmur (significant systolic murmur with thrill present on loudest on Aortic auscultation area. ) - GI/Abdominal Exam GI & Abdominal Exam: Normal Bowel Sounds, Soft, Unremarkable. absent: Distended, Firm, Guarding, Rebound, Rigid - Extremities Exam Extremities exam: normal inspection, pedal pulses present (+2 dorsalis pedis and tibialis pulses present bilaterally. ) - Neurological Exam Neurological exam: Alert, Oriented x3 - Psychiatric Exam Psychiatric exam: Normal Affect, Normal Mood - Skin Skin Exam: Dry, Intact, Normal Color, Warm Discharge Plan - Discharge Medications Prescriptions: RX: Aspirin [Braxton Aspirin EC] 81 mg PO DAILY #30 tab RX: Lisinopril [Zestril] 2.5 mg PO DAILY #30 tab - Follow Up Plan Condition: GOOD Disposition: HOME/ ROUTINE Patient education suggested?: Yes Instructions: Chest Pain (DC) Additional Instructions: follow up appt in the clinic on @ 9 : [address] Wing Referrals: [facility] [Outside] <Pratibha Miranda - Last Filed: 12/29/18 17:54> Provider - Provider Date of Admission: 12/28/18 13:37 Attending physician: Myron Davidson MD Consults: 12/28/18 17:46 Pastoral Care Referral Routine Comment: Physician Instructions: Reason For Exam: spiritual support 12/28/18 17:47 Social Work Referral Routine Comment: none Physician Instructions: safe discharge. Reason For Exam: lives alone. 12/29/18 09:18 Cardiology Consult Routine Comment: Consulting Provider: Marylou Ji Consulting Physician: Marylou Ji Reason for Consult: CP. Aortic stenosis? Hospital Course - Lab Results Lab Results: Most Recent Lab Values WBC 5.3 K/uL (4.8-10.8) 12/29/18 04:20 RBC 4.31 Mil/uL (4.40-5.90) L 12/29/18 04:20 Hgb 12.8 g/dL (12.0-18.0) 12/29/18 04:20 Hct 38.6 % (35.0-51.0) 12/29/18 04:20 MCV 89.7 fl (80.0-94.0) 12/29/18 04:20 MCH 29.7 pg (27.0-31.0) 12/29/18 04:20 MCHC 33.1 g/dL (33.0-37.0) 12/29/18 04:20 RDW 13.6 % (11.5-14.5) 12/29/18 04:20 Plt Count 158 K/uL (130-400) 12/29/18 04:20 MPV 8.4 fl (7.2-11.7) 12/29/18 04:20 Neut % (Auto) 55.0 % (50.0-75.0) 12/29/18 04:20 Lymph % (Auto) 31.5 % (20.0-40.0) 12/29/18 04:20 Gaston % (Auto) 8.1 % (0.0-10.0) 12/29/18 04:20 Eos % (Auto) 4.7 % (0.0-4.0) H 12/29/18 04:20 Baso % (Auto) 0.7 % (0.0-2.0) 12/29/18 04:20 Neut # (Auto) 2.9 K/uL (1.8-7.0) 12/29/18 04:20 Lymph # (Auto) 1.7 K/uL (1.0-4.3) 12/29/18 04:20 Gaston # (Auto) 0.4 K/uL (0.0-0.8) 12/29/18 04:20 Eos # (Auto) 0.3 K/uL (0.0-0.7) 12/29/18 04:20 Baso # (Auto) 0.0 K/uL (0.0-0.2) 12/29/18 04:20 Sodium 136 mmol/l (132-148) 12/29/18 03:25 Potassium 3.9 MMOL/L (3.6-5.0) 12/29/18 03:25 Chloride 107 mmol/L (98-107) 12/29/18 03:25 Carbon Dioxide 23 mmol/L (22-30) 12/29/18 03:25 Anion Gap 10 (10-20) 12/29/18 03:25 BUN 23 mg/dl (9-20) H 12/29/18 03:25 Creatinine 0.7 mg/dl (0.8-1.5) L 12/29/18 03:25 Est GFR ( Amer) > 60 12/29/18 03:25 Est GFR (Non-Af Amer) > 60 12/29/18 03:25 POC Glucose (mg/dL) 140 mg/dL (65-110) H 12/28/18 11:09 Random Glucose 86 mg/dL (75-110) 12/29/18 03:25 Calcium 8.9 mg/dL (8.4-10.2) 12/29/18 03:25 Phosphorus 4.0 mg/dl (2.5-4.5) 12/28/18 11:18 Magnesium 2.0 MG/DL (1.6-2.3) 12/28/18 11:18 Total Bilirubin 0.6 mg/dl (0.2-1.3) 12/28/18 11:18 AST 39 U/L (17-59) 12/28/18 11:18 ALT 32 U/L (21-72) 12/28/18 11:18 Alkaline Phosphatase 61 U/L (38-126) 12/28/18 11:18 Total Creatine Kinase 145 U/L (55-170) 12/28/18 11:18 Troponin I 0.0140 ng/mL (0.00-0.120) 12/29/18 03:25 NT-Pro-B Natriuret Pep 3130 pg/ml (0-900) H 12/28/18 11:18 Total Protein 6.3 G/DL (6.3-8.2) 12/28/18 11:18 Albumin 3.6 g/dL (3.5-5.0) 12/28/18 11:18 Globulin 2.7 gm/dL (2.2-3.9) 12/28/18 11:18 Albumin/Globulin Ratio 1.3 (1.0-2.1) 12/28/18 11:18 Triglycerides 62 mg/DL (0-149) 12/29/18 03:25 Cholesterol 188 mg/dL (0-199) 12/29/18 03:25 LDL Cholesterol Direct 109 mg/dL (0-129) 12/29/18 03:25 HDL Cholesterol 45 MG/DL (30-70) 12/29/18 03:25 Lipase 64 U/L (23-300) 12/28/18 11:18 Prostate Specific Ag 11.3 ng/ML (0.00-4.0) H 12/28/18 11:18 TSH 3rd Generation 0.99 mIU/ML (0.46-4.68) 12/28/18 11:18 Urine Color Yellow (YELLOW) 12/28/18 13:38 Urine Clarity Clear (Clear) 12/28/18 13:38 Urine pH 6.0 (5.0-8.0) 12/28/18 13:38 Ur Specific Silver Plume 1.012 (1.003-1.030) 12/28/18 13:38 Urine Protein Negative mg/dL (NEGATIVE) 12/28/18 13:38 Urine Glucose (UA) Neg mg/dL (NEGATIVE) 12/28/18 13:38 Urine Ketones Negative mg/dL (NEGATIVE) 12/28/18 13:38 Urine Blood Moderate (NEGATIVE) 12/28/18 13:38 Urine Nitrate Negative (NEGATIVE) 12/28/18 13:38 Urine Bilirubin Negative (NEGATIVE) 12/28/18 13:38 Urine Urobilinogen 0.2-1.0 mg/dL (0.2-1.0) 12/28/18 13:38 Ur Leukocyte Esterase Neg Cedric/uL (Negative) 12/28/18 13:38 Urine RBC (Auto) 20 /hpf (0-3) H 12/28/18 13:38 Urine Microscopic WBC < 1 /hpf (0-5) 12/28/18 13:38 Ur Squamous Epith Cells < 1 /hpf (0-5) 12/28/18 13:38 Urine Bacteria Few (<OCC) H 12/28/18 13:38 Attending/Attestation - Attestation I have personally seen and examined this patient.: Yes I have fully participated in the care of the patient.: Yes I have reviewed all pertinent clinical information, including history, physical exam and plan: Yes Notes (Text): Chest Pain, ACS ruled out, Pain prob due to Severe aortic stenosis Severe Aortic Stenosis and Mod to Severe Aortic Regurgitation Acute CHF, Systolic and Diastolic Dysfunction Elevated PSA - Trop x 3 negative - will d/c pt home on ASA and low dose Lisinopril -Pt will ff up at the [facility] , he will be referred to [facility] for poss Aortic Valve replacement - further Prostate work up as outpt - Treatment and D/C Plan discussed with pt in detail by Slovak speaking residents ( Dr Holden and Dr Lake)
--- NOTE | 2018-12-29 18:24 | CP.PCM.CON ---
History of Present Illness - History of Present Illness History of Present Illness: PT SEEN AND EXAMINED WITH RESIDENTS. PT HAS OCCASIONAL MARIE, CHEST PRESSURE WITH EXERTION AND DIZZINESS WITHOUT SYNCOPE. ECHO REVEALS SEVERE AND AI WITH DILATED LV. PT IS COMPENSATED PHYSIOLOGICALLY. HE DENIES ORTHOPNEA OR PND. Review of Systems - Review of Systems Systems not reviewed;Unavailable: Language Barrier Past Patient History - Past Medical History & Family History Past Medical History?: No - Past Social History Smoking Status: Never Smoked Chewing Tobacco Use: No Cigar Use: No Alcohol: None Drugs: Denies Home Situation {Lives}: With Family - CARDIAC Hx Cardiac Disorders: No - PULMONARY Hx Respiratory Disorders: No - NEUROLOGICAL Hx Neurological Disorder: No - HEENT Hx HEENT Problems: No - RENAL Hx Chronic Kidney Disease: No - ENDOCRINE/METABOLIC Hx Endocrine Disorders: No - HEMATOLOGICAL/ONCOLOGICAL Hx Blood Disorders: No - INTEGUMENTARY Hx Dermatological Problems: No - MUSCULOSKELETAL/RHEUMATOLOGICAL Hx Musculoskeletal Disorders: No - GENITOURINARY/GYNECOLOGICAL Hx Genitourinary Disorders: No - PSYCHIATRIC Hx Psychophysiologic Disorder: No - SURGICAL HISTORY Hx Surgeries: No - ANESTHESIA Hx Anesthesia: No Hx Anesthesia Reactions: No Hx Malignant Hyperthermia: No Has any member of the family had a problem w/ anesthesia?: No (unknown) Meds Home Medications: Home Medication List Medication Instructions Recorded Confirmed Type Aspirin [Aspirin Chewable] 81 mg PO DAILY chew 12/29/18 Rx Aspirin [[place] Aspirin EC] 81 mg PO DAILY #30 tab 12/29/18 Rx Lisinopril [Zestril] 2.5 mg PO DAILY #30 tab 12/29/18 Rx Pantoprazole [Protonix EC Tab] 40 mg PO DAILY ect 12/29/18 Rx Allergies/Adverse Reactions: Allergies Allergy/AdvReac Type Severity Reaction Status Date / Time No Known Allergies Allergy Verified 12/14/17 12:49 - Medications Medications: Current Medications Aspirin (Aspirin Chewable) 81 mg PO DAILY [facility] Last Admin: 12/29/18 08:41 Dose: 81 mg Enoxaparin Sodium (Lovenox) 40 mg SC DAILY [facility]; Protocol Last Admin: 12/29/18 08:40 Dose: 40 mg Lisinopril (Zestril) 2.5 mg PO DAILY [facility] Last Admin: 12/29/18 08:41 Dose: 2.5 mg Nitroglycerin (Nitrostat Sl Tab) 0.4 mg SL Q5M PRN PRN Reason: chest pain Pantoprazole Sodium (Protonix Ec Tab) 40 mg PO DAILY [facility] Last Admin: 12/29/18 08:41 Dose: 40 mg Physical Exam - Constitutional Appears: Non-toxic - Head Exam Head Exam: ATRAUMATIC, NORMAL INSPECTION, NORMOCEPHALIC - Eye Exam Eye Exam: EOMI, Normal appearance, PERRL. absent: Conjunctival injection, Nystagmus, Periorbital swelling, Periorbital tenderness, Scleral icterus Pupil Exam: NORMAL ACCOMODATION, PERRL. absent: Fixed, Irregular, Miosis, Mydriatic, Unequal - ENT Exam ENT Exam: Mucous Membranes Moist, Normal Exam. absent: Mucous Membranes Dry, Normal External Ear Exam, Normal Oropharynx, TM's Normal Bilaterally - Neck Exam Neck exam: Positive for: Normal Inspection - Respiratory Exam Respiratory Exam: Clear to Auscultation Bilateral, NORMAL BREATHING PATTERN - Cardiovascular Exam Cardiovascular Exam: REGULAR RHYTHM, +S1, +S2, Systolic Murmur Additional comments: THRILL NOTED - GI/Abdominal Exam GI & Abdominal Exam: Normal Bowel Sounds, Soft. absent: Bruit, Diminished Bowel Sounds, Distended, Firm, Guarding, Hernia, Hyperactive Bowel Sounds, Hypoactive Bowel Sounds, Mass, Organomegaly, Pulsatile Mass, Rebound, Rigid, Tenderness - Rectal Exam Rectal Exam: Deferred - Extremities Exam Extremities exam: Positive for: normal inspection. Negative for: calf tendern ess, full ROM, joint swelling, normal capillary refill, pedal edema, tenderness, pedal pulses present - Back Exam Back exam: NORMAL INSPECTION - Neurological Exam Neurological exam: Alert, CN II-XII Intact, Normal Gait, Oriented x3, Reflexes Normal - Psychiatric Exam Psychiatric exam: Normal Affect, Normal Mood - Skin Skin Exam: Dry, Intact, Normal Color, Warm Results - Vital Signs Recent Vital Signs: Last Vital Signs Temp 97.7 F 12/29/18 15:34 Pulse 65 12/29/18 15:34 Resp 18 12/29/18 15:34 BP 131/56 L 12/29/18 15:34 Pulse Ox 99 12/29/18 15:34 - Labs Result Diagrams: 12/29/18 04:20 12/29/18 03:25 Labs: Laboratory Results - last 24 hr 12/28/18 12/29/18 12/29/18 19:00 03:25 04:20 WBC 5.3 RBC 4.31 L Hgb 12.8 Hct 38.6 MCV 89.7 MCH 29.7 MCHC 33.1 RDW 13.6 Plt Count 158 MPV 8.4 Neut % (Auto) 55.0 Lymph % (Auto) 31.5 [place] % (Auto) 8.1 Eos % (Auto) 4.7 H Baso % (Auto) 0.7 Neut # (Auto) 2.9 Lymph # (Auto) 1.7 [place] # (Auto) 0.4 Eos # (Auto) 0.3 Baso # (Auto) 0.0 Sodium 136 Potassium 3.9 Chloride 107 Carbon Dioxide 23 Anion Gap 10 BUN 23 H Creatinine 0.7 L Est GFR ( Amer) > 60 Est GFR (Non-Af Amer) > 60 Random Glucose 86 Calcium 8.9 Troponin I 0.0120 0.0140 Triglycerides 62 Cholesterol 188 LDL Cholesterol Direct 109 HDL Cholesterol 45 - EKG Data EKG Interpreted by: Myself EKG shows normal: Sinus rhythm Rate: Normal Assessment & Plan (1) MARIE (dyspnea on exertion) Status: Acute (2) Aortic stenosis, severe Status: Acute (3) Aortic valve insufficiency, acquired Status: Acute (4) Chest pain Status: Acute - Assessment and Plan (Free Text) Plan: PT NEEDS REFERRAL FOR AV REPLACEMENT. HE HAS RULED OUT FOR NE. WILL D/C TO HOME, F/U WITH [facility]IDENT CL[facility]IC IN 2 DAYS. APPOINTMENT MADE AND GIVEN. WILL THEN REFER PT TO CTS AT [facility] FROM THE CLINIC. LOW DOSE ACEI. NO DIURETICS
[2018-12-30 15:35] VITALS: PULSE 69; O2SAT 97
== END 2018-12-29 18:20 | disposition home or self-care (01) ==
LOC: H.ER 10:32 → H.ERHOLD 13:37 → H.TEL 17:09
DX: R07.89 Other chest pain (principal); I35.2 Nonrheumatic aortic (valve) stenosis with insufficiency; R97.20 Elevated prostate specific antigen [PSA]; I50.41 Acute combined systolic (congestive) and diastolic (congestive) heart failure; Z79.82 Long term (current) use of aspirin
CPT/HCPCS: 36415; 71046; 80048; 80053; 80061; 81003; 82550; 82948; 83690; 83735; 83880; 84100; 84153; 84443; 84484; 85025; 93005; 93306; 99285; G0378; J1650; J1940